=== PATIENT | female | born 1975 | race American Indian/Alaskan Native ===

== ENCOUNTER 2019-10-10 12:49 | Emergency (ER) | payer MEDICAID ==
[2019-10-10 13:10] VITALS: BP 137/85
--- NOTE | 2019-10-10 13:18 | Emergency Department Report ---
Blank Doc - Documentation Documentation: 44-year-old female that presents with midsternum chest pain. Denies any SOB. Stated pain is worse with movement and palpation. Denies any radiation of pain. This initial assessment/diagnostic orders/clinical plan/treatment(s) is/are subject to change based on patient's health status, clinical progression and re- assessment by fellow clinical providers in the ED. Further treatment and workup at subsequent clinical providers discretion. Patient/guardians urged not to mike pe from the ED as their condition may be serious if not clinically assessed and managed. Initial orders include: 1- Patient sent to [facility] for further evaluation and treatment 2- EKG 3- CXR
--- NOTE | 2019-10-10 14:34 | Emergency Department Report ---
ED Chest Pain HPI - General Chief Complaint: Chest Pain Stated Complaint: CHEST PAIN Time Seen by Provider: 10/10/19 13:16 Source: patient Mode of arrival: Ambulatory Limitations: No Limitations - History of Present Illness Initial Comments: This is a 44-year-old patient here with chest pain since yesterday. She said the pain is located in her midsternal area and she has some numbness in her left arm. She says she feels tired. She says she has a history of asthma and she is out of her asthma medicine. Denies any nausea or vomiting. Denies any s hortness of breath. Denies any abdominal back pain. Pain is 7 out of 10 and burning pain. Pain is intermittent and no medication taken. Force of present and better with rest. Reports some coughing. Denies any runny nose or nasal congestion. Has any fever or chills. Patient denies any history of heart disease. Denies diabetes or high cholesterol MD Complaint: chest pain Onset/Timin -: days(s) Onset: other (associated with inspiration) Pain Location: epigastric Pain Radiation: none Severity: severe Severity scale (0 -10): 9 Quality: other (burning ) Consistency: intermittent Improves With: rest Worsens With: inspiration Context: other (unknown) re: other (numbness and tingling to arm on the left side). denies: nausea, vomting, diaphoresis, dyspnea, sense of impending doom Other Symptoms: cough. denies: fever, syncope, rash, acid taste in mouth, leg swelling, palpitations, burping Treatments Prior to Arrival: none - Related Data On Oral Contraceptives: No Previous Rx's Medication Instructions Recorded Last Taken Type Albuterol Sulfate [Proair 2 puff IH Q6H PRN #1 inhalation 10/10/19 Unknown Rx Respiclick] Cetirizine HCl [ZyrTEC] 10 mg PO QAM 14 Days #14 capsule 10/10/19 Unknown Rx Allergies Allergy/AdvReac Type Severity Reaction Status Date / Time No Known Allergies Allergy Unverified 10/10/19 13:09 Heart Score - HEART Score History: Slightly suspicious EKG: Non-specific Age: < 45 Risk factors: 1-2 risk factors Troponin: < normal limit HEART Score: 2 - Critical Actions Critical Actions: 0-3 pts:0.9-1.7%risk of adverse cardiac event.Candidate for discharge ED Review of Systems ROS: Stated complaint: CHEST PAIN Other details as noted in HPI Constitutional: denies: chills, fever Eyes: denies: eye pain ENT: denies: throat pain, congestion Respiratory: denies: cough, shortness of breath, SOB with exertion, SOB at rest, stridor, wheezing Cardiovascular: chest pain. denies: palpitations, dyspnea on exertion, edema, syncope, paroxysmal nocturnal dyspnea Gastrointestinal: denies: abdominal pain, nausea, vomiting Musculoskeletal: denies: back pain, joint swelling, arthralgia, myalgia Skin: denies: rash Neurological: numbness (similar left arm intermittent). denies: headache, paresthesias, abnormal gait, vertigo ED Past Medical Hx - Past Medical History Previous Medical History?: No - Surgical History Past Surgical History?: No - Family History Family history: asthma, hypertension - Social History Smoking Status: Never Smoker Substance Use Type: None - Medications Home Medications: Home Medications Medication Instructions Recorded Confirmed Last Taken Type Albuterol Sulfate [Proair 2 puff IH Q6H PRN #1 inhalation 10/10/19 Unknown Rx Respiclick] Cetirizine HCl [ZyrTEC] 10 mg PO QAM 14 Days #14 capsule 10/10/19 Unknown Rx ED Physical Exam - General Limitations: No Limitations General appearance: alert, in no apparent distress - Head Head exam: Present: atraumatic, normal inspection - Eye Eye exam: Present: normal appearance, PERRL, EOMI Pupils: Present: normal accommodation - ENT ENT exam: Present: normal exam, normal orophraynx, mucous membranes moist, TM's normal bilaterally, normal external ear exam, other (lateral nasal mucosa pale and boggy with clear drainage) - Neck Neck exam: Present: normal inspection, full ROM. Absent: tenderness, lymphadenopathy - Respiratory Respiratory exam: Present: normal lung sounds bilaterally. Absent: respiratory distress, wheezes, rales, rhonchi, stridor, chest wall tenderness, accessory muscle use, decreased breath sounds - Cardiovascular Cardiovascular Exam: Present: regular rate, normal rhythm, normal heart sounds. Absent: systolic murmur, diastolic murmur - GI/Abdominal GI/Abdominal exam: Present: soft, normal bowel sounds. Absent: distended, tenderness, guarding, rebound, rigid - Extremities Exam Extremities exam: Present: normal inspection, full ROM, normal capillary refill, other (No cce. + 2 pulses in all extremities, no neurovascular compromise). Absent: tenderness, pedal edema, joint swelling, calf tenderness - Back Exam Back exam: Present: normal inspection, full ROM, other (ambulates without any difficulties). Absent: tenderness, CVA tenderness (R), CVA tenderness (L), muscle spasm, paraspinal tenderness, vertebral tenderness, rash noted - Neurological Exam Neurological exam: Present: alert, oriented X3, normal gait - Psychiatric Psychiatric exam: Present: normal affect, normal mood - Skin Skin exam: Present: warm, dry, intact, normal color. Absent: rash ED Course Vital Signs 10/10/19 13:07 Temperature 97.5 F L Pulse Rate 68 Respiratory 18 Rate Blood Pressure 137/85 O2 Sat by Pulse 100 Oximetry - Reevaluation(s) Reevaluation #1: 10/10/19 16:35 Patient's stable and in no acute distress. She is having any chest pain at present. I discussed her lab and x-ray, EKG results with her. SRINIVAS score - Srinivas Score Age > 65: (0) No Aspirin use within the Past 7 Days: (0) No 3 or more CAD Risk Factors: (0) No 2 or more Angina events in past 24 hrs: (0) No Known CAD with more than 50% Stenosis: (0) No Elevated Cardiac Markers: (0) No ST Deviation Greater than 0.5mm: (0) No SRINIVAS Score: 0 ED Medical Decision Making - Lab Data Result diagrams: 10/10/19 15:21 10/10/19 15:21 Lab Results 10/10/19 10/10/19 10/10/19 Range/Units 15:21 15:21 15:21 WBC 6.3 (4.5-11.0) K/mm3 RBC 4.47 (3.65-5.03) M/mm3 Hgb 12.3 (10.1-14.3) gm/dl Hct 37.9 (30.3-42.9) % MCV 85 (79-97) fl MCH 28 (28-32) pg MCHC 32 (30-34) % RDW 15.2 (13.2-15.2) % Plt Count 232 (140-440) K/mm3 Lymph % (Auto) 18.6 (13.4-35.0) % Ritchie % (Auto) 5.2 (0.0-7.3) % Eos % (Auto) 0.2 (0.0-4.3) % Baso % (Auto) 0.5 (0.0-1.8) % Lymph # 1.2 (1.2-5.4) K/mm3 Ritchie # 0.3 (0.0-0.8) K/mm3 Eos # 0.0 (0.0-0.4) K/mm3 Baso # 0.0 (0.0-0.1) K/mm3 Seg Neutrophils % 75.5 H (40.0-70.0) % Seg Neutrophils # 4.8 (1.8-7.7) K/mm3 D-Dimer 182.21 (0-234) ng/mlDDU Sodium 138 (137-145) mmol/L Potassium 4.3 (3.6-5.0) mmol/L Chloride 101.5 (98-107) mmol/L Carbon Dioxide 22 (22-30) mmol/L Anion Gap 19 mmol/L BUN 8 (7-17) mg/dL Creatinine 0.9 (0.7-1.2) mg/dL Estimated GFR > 60 ml/min BUN/Creatinine Ratio 9 % Glucose 92 (65-100) mg/dL Calcium 9.1 (8.4-10.2) mg/dL Troponin T < 0.010 (0.00-0.029) ng/mL HCG, Qual (Negative) 10/10/19 Range/Units 15:21 WBC (4.5-11.0) K/mm3 RBC (3.65-5.03) M/mm3 Hgb (10.1-14.3) gm/dl Hct (30.3-42.9) % MCV (79-97) fl MCH (28-32) pg MCHC (30-34) % RDW (13.2-15.2) % Plt Count (140-440) K/mm3 Lymph % (Auto) (13.4-35.0) % Ritchie % (Auto) (0.0-7.3) % Eos % (Auto) (0.0-4.3) % Baso % (Auto) (0.0-1.8) % Lymph # (1.2-5.4) K/mm3 Ritchie # (0.0-0.8) K/mm3 Eos # (0.0-0.4) K/mm3 Baso # (0.0-0.1) K/mm3 Seg Neutrophils % (40.0-70.0) % Seg Neutrophils # (1.8-7.7) K/mm3 D-Dimer (0-234) ng/mlDDU Sodium (137-145) mmol/L Potassium (3.6-5.0) mmol/L Chloride (98-107) mmol/L Carbon Dioxide (22-30) mmol/L Anion Gap mmol/L BUN (7-17) mg/dL Creatinine (0.7-1.2) mg/dL Estimated GFR ml/min BUN/Creatinine Ratio % Glucose (65-100) mg/dL Calcium (8.4-10.2) mg/dL Troponin T (0.00-0.029) ng/mL HCG, Qual Negative (Negative) - EKG Data -: EKG Interpreted by Me (attending physician) Rate: bradycardia (sinus bradycardia at 59 bpm) - EKG Data Interpretation: nonspecific ST-T wave toyin, other (some PACs) - Radiology Data Radiology results: report reviewed X-ray two-view dictated by radiologist and report reviewed by myself. [place] [address] XRay Report Signed Patient: CHARU NANCE MR# : [id number] : 1975 Acct:[id number] Age/Sex: 44 / F ADM Date: 10/10/19 Loc: ED Attending Dr: Ordering Physician: DORY FERNANDEZ NP Date of Service: 10/10/19 Procedure(s): XR chest routine 2V Accession Number(s): [id number] cc: DORY FERNANDEZ NP Fluoro Time In Minutes: CHEST 2 VIEWS INDICATION: Chest pain for 4 days. COMPARISON: None FINDINGS: Support devices: None. Heart: Within normal limits. Lungs/pleura: No acute air space or interstitial disease. No pneumothorax. Additional findings: None. IMPRESSION: No acute findings. Signer Name: Evangelist Denis Jr, MD Signed: 10/10/2019 3:18 PM Workstation Name: [id number] Transcribed By: TTR Dictated By: EVANGELIST DENIS JR, MD Electronically Authenticated By: EVANGELIST DENIS JR, MD Signed Date/Time: 10/10/191517 DD/ 17 TD/TT: - Medical Decision Making This is a 44-year-old female here reports that she has been having chest pain to the mid epigastric area burning pain since yesterday. Some numbness to her left upper extremity. She did not have any numbness or present. She had chest x-ray done which is attended by radiologist as negative. EKG shows no acute findings, lab work stable. D-dimer negative and test is negative. I discussed x-ray report, EKG and lab results the patient and also discussed diagnosis and treatment plan. She is requesting a refill on her albuterol inhaler. Patient with nasal congestion, pale and boggy runny nose and cough and she has URI with cough and congestion and pain with inspiration. Patient discharged home with prescription for albuterol and Zyrtec and to follow up with her primary care physician in 2 days and cardiology in one to 2 days. She was understanding and discharged home in stable condition. Patient hard score was 2 and posterior lower risk and her SRINIVAS score is 0. - Differential Diagnosis ACS, pleurisy, PNA, asthma exacerbation, dyspepsia,URI/ cough congestion Critical care attestation.: If time is entered above; I have spent that time in minutes in the direct care of this critically ill patient, excluding procedure time. ED Disposition Clinical Impression: Upper respiratory infection, viral, Atypical chest pain Disposition: DC-01 TO HOME OR SELFCARE Is pt being admited?: No Does the pt Need Aspirin: No Condition: Stable Instructions: Chest Pain (ED), Upper Respiratory Infection (ED) Additional Instructions: follow-up with cardiology in 1-2 days for further investigation. Using inhalers instructed and take Zyrtec. If his chest pain returns, return to emergency room [facility] otherwise follow-up E primary care and cardiology. Referrals: PRIMARY MD SAPPHIRE [Primary Care Provider] - [facility] [[facility] Physician[facility] - 10/11/19 Forms: Work/School Release Form(ED)
--- NOTE | 2019-10-10 15:22 | XRay Report ---
CHEST 2 VIEWS INDICATION: Chest pain for 4 days. COMPARISON: None FINDINGS: Support devices: None. Heart: Within normal limits. Lungs/pleura: No acute air space or interstitial disease. No pneumothorax. Additional findings: None. IMPRESSION: No acute findings. Signer Name: Evangelist Denis Jr, MD Signed: 10/10/2019 3:18 PM Workstation Name: [id number]
[2019-10-10 15:53] LABS: Basophils % (Auto) 0.5 % (0.0-1.8); Eosinophils % (Auto) 0.2 % (0.0-4.3); Hematocrit 37.9 % (30.3-42.9); Hemoglobin 12.3 gm/dl (10.1-14.3); Lymphocytes # (Auto) 1.2 K/mm3 (1.2-5.4); Lymphocytes % (Auto) 18.6 % (13.4-35.0); Mean Corpuscular HGB Conc 32 % (30-34); Mean Corpuscular Volume 85 fl (79-97); Monocytes # (Auto) 0.3 K/mm3 (0.0-0.8); Monocytes % (Auto) 5.2 % (0.0-7.3); Platelet Count 232 K/mm3 (140-440); Red Blood Count 4.47 M/mm3 (3.65-5.03); Red Cell Distribution Width 15.2 % (13.2-15.2)
[2019-10-10 16:02] LABS: BUN/Creatinine Ratio 9; Blood Urea Nitrogen 8 mg/dL (7-17); Calcium 9.1 mg/dL (8.4-10.2); Hemolysis Index 6
== END 2019-10-10 16:53 | disposition home or self-care (01) ==
LOC: ED 12:49
DX: J06.9 Acute upper respiratory infection, unspecified (principal); R07.89 Other chest pain
CPT/HCPCS: 36415; 71046; 80048; 84484; 84703; 85025; 85379; 93005; 93010